=== PATIENT | male | born 1955 | race Caucasian/White ===

== ENCOUNTER 2023-09-05 08:55 | Outpatient (CLI) | payer BC ==
[2023-09-05] MEDS ORDERED: Magnevist 469MG/ML 20 ML VIAL ONE (10:07)
== END 2023-09-05 08:56 | disposition home or self-care (01) ==
LOC: CSHMRI 08:55
PROVIDERS: ATTEND Urology
DX: R97.20 Elevated prostate specific antigen [PSA] (principal)
CPT/HCPCS: 72197; 82565; A9579